=== PATIENT | female | born 1975 | race Two or more races ===

== ENCOUNTER 2020-03-21 11:00 | Inpatient (IN) | payer OTHER ==
[~2020-03-21] VITALS: Ht 162.6 cm; Wt 68.0 kg
[2020-03-21] MEDS ORDERED: MULTIPLE VITAM1 EACH PO (14:57)
[2020-03-21] MEDS ORDERED: OMEGA PO (14:58)
[2020-03-21] MEDS ORDERED: VITAMIN D PO (14:58)
[2020-03-21] MEDS ORDERED: VITAMIN C100 MG PO (14:58)
[2020-03-28] MEDS ORDERED: OMEGA 3 1,0001 EACH (08:20)
[2020-03-28] MEDS ORDERED: VITAMIN D310 MC4 (08:20)
[2020-03-29] MEDS ORDERED: TYLENO PO (09:06)
== END 2020-03-29 10:41 | disposition home or self-care (01) | DRG 743 ==
LOC: OB/GYN 03-28 06:00 → O/R 03-28 06:00 → SURH 03-28 07:00 → OB/GYN 03-28 12:01
PROVIDERS: ADMIT Obstetrics & Gynecology; ATTEND Obstetrics & Gynecology
PROC: 0UT07ZZ Resection of Right Ovary, Via Natural or Artificial Opening (ICD-10-PCS; 2020-03-28)
PROC: 0UQF7ZZ Repair Cul-de-sac, Via Natural or Artificial Opening (ICD-10-PCS; 2020-03-28)
PROC: 0USG7ZZ Reposition Vagina, Via Natural or Artificial Opening (ICD-10-PCS; 2020-03-28)
PROC: 0TJB8ZZ Inspection of Bladder, Via Natural or Artificial Opening Endoscopic (ICD-10-PCS; 2020-03-28)
PROC: 0UT97ZZ Resection of Uterus, Via Natural or Artificial Opening (ICD-10-PCS; principal; 2020-03-28 07:00)
DX: D25.0 Submucous leiomyoma of uterus (principal); N81.11 Cystocele, midline; N83.11 Corpus luteum cyst of right ovary; N94.5 Secondary dysmenorrhea; N92.0 Excessive and frequent menstruation with regular cycle